=== PATIENT | male | born 1995 | race African-American/Black ===

== ENCOUNTER → 2018-07-16 | Outpatient (CLI) | payer BC | LOC: LAB 18:12 | DX: R35.0 Frequency of micturition (principal) ==

== ENCOUNTER → 2018-08-03 | Outpatient (CLI) | payer BC ==
[2018-08-03 18:54] LABS: EOS # 0.1 (0.04-0.40); EOS % 1.3 % (0.0-4.0); HEMOGLOBIN 16.7 g/dL (12.5-16.1); LYMPH# 2.8 (1.50-4.00); MEAN CELL VOLUME 82 fl (78-95); MEAN CORPUSCULAR HEMOGLOBIN 28 pg (26-32); MEAN CORPUSCULAR HGB CONC 35 g/dL (33-37); MEAN PLATELET VOLUME 10.2 fl (7.4-10.4); MONO # 0.8 (0.20-0.80); NEU # 4.9 (1.40-6.50); PLATELET COUNT 274 K/mm3 (130-400); RED BLOOD COUNT 5.87 M/mm3 (4.20-5.60); RED CELL DISTRIBUTION WIDTH 12.7 % (11.5-14.5); WHITE BLOOD COUNT 8.7 K/mm3 (4.8-10.8)
[2018-08-03 19:17] LABS: ALBUMIN 4.8 g/dL (3.5-5.0); CALCIUM 9.4 mg/dL (8.4-10.2); POTASSIUM 4.3 mmol/L (3.6-5.0); TOTAL BILIRUBIN 0.8 mg/dL (0.2-1.3); TOTAL PROTEIN 7.8 g/dL (6.3-8.2)
== END ==
LOC: LAB 18:23
PROVIDERS: Nurse Practitioner Family
DX: R35.0 Frequency of micturition (principal); R82.2 Biliuria